=== PATIENT | male | born 1945 | race Two or more races ===

== ENCOUNTER 2016-12-24 12:35 | Inpatient (IN) | payer OTHER, MEDICARE ==
[~2016-12-24] VITALS: Ht 160 cm; Wt 70.5 kg
[2016-12-29] MEDS ORDERED: SODIUM CHLORID 0.9% 500 ML IV PRN (05:45)
[2016-12-29] MEDS ORDERED: LACTATED RINGER'S 1000 ML IV PRN (05:45)
[2016-12-29] MEDS ORDERED: INSULIN HUMAN REGULAR 1,000 UNITS/10 ML VIAL SQ PRN (05:45)
[2016-12-29] MEDS ORDERED: POVIDONE IODINE 7.5% SCRUB 118 ML BOTTLE TOPICAL SCH (05:45)
[2016-12-29] MEDS ORDERED: METOPROLOL TARTRATE 25 MG TAB PO PRN (05:45)
[2016-12-29] MEDS ORDERED: POVIDONE IODINE 5% (ANTISEPSIS KIT) 4 APPLICATIONS EACH NARE PRN (05:45)
[2016-12-29] MEDS ORDERED: CHLORHEXIDINE GLUCONATE 4% SOLN 120 ML BTL TOPICAL SCH (05:45)
[2016-12-29] MEDS ORDERED: ceFAZolin 2 GM PREMIX 50 ML IV SCH (05:45)
[2016-12-29] MEDS ORDERED: VANCOMYCIN 1000 MG/NS 250 ML (for <70 kg) IV SCH ×2 (05:45)
[2016-12-29] MEDS ORDERED: CHLORHEXIDINE GLUCONATE 2 % 1 PACK (2 CLOTHS) TOPICAL PRN (05:45)
[2016-12-29] MEDS ORDERED: LISI10TA PO (05:51)
[2016-12-29] MEDS ORDERED: DILT240C PO (05:51)
[2016-12-29] MEDS ORDERED: OMEP20CA2 PO (05:51)
[2016-12-29] MEDS ORDERED: FENO160T PO (05:51)
[2016-12-29 05:52] VITALS: BP 137/81; PULSE 68; RESP 20; TEMP 97.8; O2SAT 95
[2016-12-29] MEDS ORDERED: DEXAMETHASONE SOD PHOS 20 MG/5 ML VIAL IV SCH (06:00)
[2016-12-29] MEDS ORDERED: GENTAMICIN SULFATE 80 MG/2 ML VIAL ONE ×2 (06:16)
[2016-12-29] MEDS ORDERED: FAMOTIDINE 20 MG/2 ML VIAL ONE (06:35)
[2016-12-29] MEDS ORDERED: MIDAZOLAM HCL 2 MG/2 ML VIAL ONE (06:35)
[2016-12-29] MEDS ORDERED: DEXAMETHASONE SOD PHOS 4 MG/ML VIAL ONE (06:35)
[2016-12-29] MEDS ORDERED: ACETAMINOPHEN 1000 MG/100 ML VIAL IV ONE (06:35)
[2016-12-29] MEDS ORDERED: ONDANSETRON HCL 4 MG/2 ML VIAL IVP PRN (06:45)
[2016-12-29] MEDS ORDERED: diphenhydrAMINE HCL 50 MG/ML VIAL IV PRN (06:45)
[2016-12-29] MEDS ORDERED: ALUMINUM/MAGNESIUM/SIMETH 30 ML CUP PO PRN (06:45)
[2016-12-29] MEDS ORDERED: MORPHINE SULFATE 4 MG/ML INJ IV PUSH PRN (06:45)
[2016-12-29] MEDS ORDERED: NALOXONE HCL 0.4 MG/ML AMP IV PRN (06:45)
[2016-12-29] MEDS ORDERED: BISACODYL 10 MG SUPP RECTAL PRN (06:45)
[2016-12-29] MEDS ORDERED: SODIUM CHLORIDE 0.9% FLUSH 5 ML FLUSH IVF PRN (06:45)
[2016-12-29] MEDS ORDERED: ZOLPIDEM TARTRATE 5 MG TAB PO PRN (06:45)
[2016-12-29] MEDS ORDERED: Post-op Orders (for Pharmacy) MISC XX ONE (06:45)
[2016-12-29] MEDS ORDERED: ACETAMINOPHEN/HYDROcodone 325 MG/10 MG TAB PO PRN (06:45)
[2016-12-29] MEDS ORDERED: HYDR-3288 PO (06:46)
[2016-12-29] MEDS ORDERED: ENOX30P SQ (06:47)
[2016-12-29] MEDS ORDERED: ASPI81CH37 CHEW (06:48)
[2016-12-29] MEDS ORDERED: TRANEXAMIC PERI-ARTICULAR 3,000 MG/NS 100 ML P-ARTICULR SCH ×2 (07:00)
[2016-12-29] MEDS ORDERED: EXPAREL PERI-ARTICULAR INJECTION (TOTAL VOL. 60 ML) P-ARTICULR SCH ×2 (07:00)
[2016-12-29] MEDS ORDERED: TRANEXAMIC ACID IV SCH (07:00)
[2016-12-29] MEDS ORDERED: SODIUM CHLORIDE 0.9% IV SCH (07:00)
[2016-12-29] MEDS: LISINOPRIL 10 MG TAB PO SCH (09:00)
[2016-12-29] MEDS ORDERED: DO NOT ADM ANY ANTICOAGULANT DRUGS PRN (09:00)
[2016-12-29] MEDS ORDERED: NON-FORMULARY DRUG (Lisinopril-Hctz 1 TAB) PO SCH (09:00)
[2016-12-29] MEDS: DILTIAZEM-CD 240 MG CAP ER PO SCH (09:00)
[2016-12-29] MEDS: FENOFIBRATE 145 MG TAB PO SCH (09:00)
[2016-12-29] MEDS: PANTOPRAZOLE SOD 20 MG DELAYED RELEASE TAB PO SCH (09:00)
[2016-12-29] MEDS: HYDROCHLOROTHIAZIDE 25 MG TAB PO SCH (09:00)
[2016-12-29] MEDS: SODIUM CHLORIDE 0.9% FLUSH 5 ML FLUSH IVF SCH ×2 (09:00→21:07)
[2016-12-29] MEDS: SODIUM CHLOR 0.9% 1000 ML INJ 1,000 ML IV SCH ×2 (09:00→17:00)
--- NOTE | 2016-12-29 09:19 | RADRPT ---
EXAM DATE/TIME: 12/29/2016 07:14 [facility] COMPARISON: No previous studies available for comparison. INDICATIONS : Right anterior hip replacement. MEDICAL HISTORY : Hypertension. Gastroesophageal reflux disease. SURGICAL HISTORY : None. ENCOUNTER: Initial ACUITY: 1 day PAIN SCORE: Non-responsive. LOCATION: Right hip. FINDINGS: 2 AP views of the right hip were obtained and demonstrate that the patient is status post right hip a rthroplasty. The femoral and acetabular components are intact and in normal alignment. Overlying surg ical skin maury and mild artifact is present. CONCLUSION: Status post right hip arthroplasty. Wild Lopez MD on December 29, 2016 at 9:16 Board Certified Radiologist. This report was verified electronically.
--- NOTE | 2016-12-29 09:51 | RADRPT ---
EXAM DATE/TIME: 12/29/2016 09:14 [facility] COMPARISON: No previous studies available for comparison. INDICATIONS : Post op right total hip. MEDICAL HISTORY : None. SURGICAL HISTORY : None. ENCOUNTER: Subsequent ACUITY: 1 day PAIN SCORE: Non-responsive. LOCATION: Right hip FINDINGS: Right total hip arthroplasty is noted. The hardware is intact. Alignment is anatomic. The adjacent pe lvis is intact. Contralateral left hip is nonacute. CONCLUSION: Satisfactory appearance post right KARLENE Bipin Krishna MD on December 29, 2016 at 9:49 Board Certified Radiologist. This report was verified electronically.
[2016-12-29 12:00] VITALS: BP 123/73; PULSE 75; RESP 15; TEMP 97.1; O2SAT 95
--- NOTE | 2016-12-29 13:02 | EKG ---
Date Performed: 12/29/2016 Time Performed: 06:19:59 PTAGE: 71 years EKG: Sinus rhythm BORDERLINE LEFT AXIS DEVIATION RIGHT BUNDLE BRANCH BLOCK ABNORMAL ECG NO PREVIOUS TRACING DOCTOR: Faisal Fontenot Interpretating Date/Time 12/29/2016 13:00:54
[2016-12-29] MEDS ORDERED: PROPOFOL 200 MG/20 ML AMP IV ONE (14:56)
[2016-12-29] MEDS ORDERED: PHENYLEPH/NS 1000 MCG/10 ML SYR IV ONE (14:57)
[2016-12-29] MEDS ORDERED: ePHEDrine/NS 25 MG/5 ML SYR IV ONE (14:57)
[2016-12-29] MEDS ORDERED: ONDANSETRON HCL 4 MG/2 ML VIAL IV PUSH ONE (14:58)
[2016-12-29 16:00] VITALS: BP 133/80; PULSE 83; RESP 18; TEMP 96.6; O2SAT 95
--- NOTE | 2016-12-29 16:23 | PD.CONS ---
[facility] Consult Requested By Orthopedist Dr. Bellamy Reason for Consult Assist with Medical Management Primary Care Physician Dania Ford MD Diagnoses: History of Present Illness Pt. is a 71 year old male with PMHX HTN, HLD who came to the hospital for Right Total Hip Arthroplasty. Pt. was seen and examined post op. States he is doing well. Verified his past medical history. States that he has been having problems with his right hip. States pain was worsening prior to surgery and he thought that it might have been related to his multiple right hernia surgeries. Postop he denies pain and discomfort. Denies SOB/ dyspnea. Denies chest pain , palpitations, headaches, dizziness. Denies fevers, chills, n/v/d. Denies hematuria, dysuria. Review of Systems Except as stated in HPI: all other systems reviewed are Neg Past Family Social History Allergies: Coded Allergies: No Known Allergies (Unverified , 12/29/16) Past Medical History HTN HLD GERD Hernia Colon polyps Past Surgical History Cholecystectomy Right hernia repair 2 Left hernia repair Colon resection removal of polyps Colonoscopy Reported Medications Reported Meds & Active Scripts Active Aspirin Low Dose (Aspirin) 81 Mg Chew 81 Mg CHEW BID Lovenox Inj (Enoxaparin Sodium) 30 Mg/0.3 Ml Syr 30 Mg SQ DAILY [place] (Hydrocodone-Acetaminophen) 7.5-325 mg Tab 1-2 Tab PO Q6H PRN Reported Omeprazole 20 Mg Cap 1 Cap PO DAILY Diltiazem HCl ER (Diltiazem HCl Coated Beads) 240 Mg Cap 1 Cap PO DAILY Fenofibrate 160 Mg Tab 160 Mg PO DAILY Lisinopril-Hctz 10-12.5 Mg Tab 1 Tab PO DAILY Active Ordered Medications Current Medications Medications (Trade) Dose Ordered Sig/Deon Route Start Time Stop Time Status Last Admin (Cardizem Cd) 240 mg DAILY PO 12/29/16 09:00 (Tricor) 145 mg DAILY PO 12/29/16 09:00 Pantoprazole Sodium 20 mg 20 mg DAILY PO 12/29/16 09:00 (NS 1000 ml Inj) 1,000 ml @ 100 mls/hr Q10H IV 12/29/16 07:00 12/29/16 09:00 (NS Flush) 2 ml UNSCH PRN IVF 12/29/16 06:45 IV Flush 2 ml 2 ml BID IVF 12/29/16 09:00 (Ancef Inj/NS Inj) 100 ml @ 200 mls/hr Q6H IV 12/29/16 12:00 12/30/16 00:29 12/29/16 11:40 (Lovenox Inj) 30 mg Q24H SQ 12/29/16 21:00 (Morphine Inj) 3 mg Q3H PRN IV PUSH 12/29/16 06:45 ([place] 10-325 Mg) 1 tab Q4H PRN PO 12/29/16 06:45 ([place] 10-325 Mg) 2 tab Q6H PRN PO 12/29/16 06:45 (Theragran M Tab) 1 tab BID PO 12/30/16 21:00 02/28/17 20:59 (Zofran Inj) 4 mg Q6H PRN IVP 12/29/16 06:45 (Colace) 100 mg BID PO 12/30/16 21:00 (Mag-Al Plus Susp Liq) 30 ml Q6H PRN PO 12/29/16 06:45 (Ambien) 5 mg HS PRN PO 12/29/16 06:45 (Dulcolax Supp) 10 mg DAILY PRN RECTAL 12/29/16 06:45 (Narcan Inj) 0.4 mg UNSCH PRN IV 12/29/16 06:45 (Benadryl Inj) 25 mg Q6H PRN IV 12/29/16 06:45 (Prinivil) 10 mg DAILY PO 12/29/16 09:00 (Hydrodiuril) 12.5 mg DAILY PO 12/29/16 09:00 Miscellaneous Information ALL NURSING DEPARTME... UNSCH PRN .XX 12/29/16 09:00 12/30/16 08:59 Family History Denies any family medical history Social History Patient is retired. Lives with . Occasional alcohol use Denies tobacco use Denies illicit drug use Physical Exam Vital Signs Vital Signs Date Time Temp Pulse Resp B/P Pulse Ox O2 Delivery O2 Flow Rate FiO2 12/29/16 12:00 97.1 75 15 123/73 95 12/29/16 11:43 98.1 77 18 120/65 96 Room Air 12/29/16 11:09 77 18 103/57 96 Room Air 12/29/16 10:30 74 16 105/75 94 Room Air 12/29/16 10:15 75 18 132/63 92 Room Air 12/29/16 10:00 71 16 106/62 94 Room Air 12/29/16 09:45 72 16 105/54 94 Room Air 12/29/16 09:30 75 16 109/57 93 Room Air 12/29/16 09:15 76 16 106/65 97 Room Air 12/29/16 09:00 69 15 106/62 100 Simple Mask 6 12/29/16 08:49 97.6 71 15 105/61 98 Simple Mask 6 12/29/16 05:52 97.8 68 20 137/81 95 Physical Exam GENERAL: This is a well-nourished, well-developed patient, in no apparent distress. SKIN: No rashes, ecchymoses or lesions. Cool and dry. HEAD: Atraumatic. Normocephalic. No temporal or scalp tenderness. EYES: Pupils equal round and reactive. No scleral icterus. No injection or drainage. ENT: Nose without bleeding. Throat without erythema. Uvula midline. Airway patent. NECK: Trachea midline. No JVD or lymphadenopathy. Supple, nontender, no meningeal signs. CARDIOVASCULAR: Regular rate and rhythm without murmurs, gallops, or rubs. RESPIRATORY: Clear to auscultation. Breath sounds equal bilaterally. No wheezes , rales, or rhonchi. GASTROINTESTINAL: Abdomen soft, non-tender, nondistended. Bowel sounds hypoactive. Barron draining clear yellow urine MUSCULOSKELETAL: Extremities without clubbing, cyanosis, trace bilateral lower extremity edema. Right hip with dressing packed clean dry and intact. NEUROLOGICAL: Awake and alert. Cranial nerves II through XII intact. Motor and sensory grossly within normal limits. Normal speech. Laboratory Laboratory Tests Test 12/29/16 05:50 Blood Type A POSITIVE Antibody Screen NEGATIVE Blood Bank Comment Imaging Last Impressions Hip and Pelvis X-Ray 12/29/16 0000 Signed Impressions: Service Date/Time: Thursday, December 29, 2016 09:14 - CONCLUSION: Satisfactory appearance post right KARLENE Bipin Krishna MD Hip X-Ray 12/29/16 0000 Signed Impressions: Service Date/Time: Thursday, December 29, 2016 07:14 - CONCLUSION: Status post right hip arthroplasty. Wild Lopez MD Assessment and Plan Problem List: (1) HLD (hyperlipidemia) ICD Code: E78.5 Status: Chronic (2) HTN (hypertension) ICD Code: I10 Status: Chronic (3) Status post total hip replacement, right ICD Code: Z96.641 Status: Acute Assessment and Plan Pt. is a 71 year old male with PMHX HTN, HLD who came to the hospital for Right Total Hip Arthroplasty 12/29/[address] Bellamy. Consulted for medical management. Status post right total hip arthroplasty - Pain medication as ordered - PT/OT by primary team HTN - Continue home medication lisinopril 10 mg/hydrochlorothiazide 12.5 mg daily , diltiazem 240 mg daily - Monitor BP trend. - As per patient, he only uses note by is M to 40 mg at night when his blood pressure is above 140 as told by his PCP. Trend BP and heart rate overnight May DC diltiazem if not needed. We'll place hold parameters. Constipation - Colace twice a day - When necessary MO M - Discussed with patient and family need for bowel regimens as narcotics may slow GI motility DVT prop Lovenox 30 mg daily Thank you for this consultation. We will follow patient with you. Written by Maribell Suarez, acting as scribe for Dr. Bartlett on 12/29/16 at 16:22. This note was transcribed by mikel ARRIETA. I, Dr. Hillary Bartlett personally performed the history, physical exam, and medical decision making; and confirmed the accuracy of the information in the transcribed note. Authenticated by Dr. Hillary Bartlett on 12/29/16 at 16:22. Code Status Full Code Discussed Condition With Patient, nursing Maribell Abad December 29, 2016 16:23 Hillary Bartlett MD December 29, 2016 18:13
[2016-12-29] MEDS: ACETAMINOPHEN/HYDROcodone 325 MG/10 MG TAB PO PRN ×2 (17:23→21:53)
[2016-12-29 19:34] VITALS: O2SAT 95
[2016-12-29 20:35] VITALS: BP 120/79; PULSE 89; RESP 17; TEMP 98.7; O2SAT 96
[2016-12-29] MEDS: ENOXAPARIN SODIUM 30 MG/0.3 ML SYRINGE SQ SCH (21:07)
[2016-12-30] VITALS (9 sets, daily range): BP systolic 121–151; BP diastolic 59–84; PULSE 72–89; RESP 16–18; TEMP 97.4–100.1; O2SAT 93–98
[2016-12-30] MEDS: SODIUM CHLOR 0.9% 1000 ML INJ 1,000 ML IV SCH ×3 (03:00→23:00)
[2016-12-30 07:49] LABS: HEMATOCRIT 33.7 % (39.0-51.0); MEAN CELL VOLUME 85.9 FL (80.0-100.0); MEAN CORPUSCULAR HGB CONC 34.9 % (32.0-36.0); PLATELET COUNT 184 TH/MM3 (150-450); RED BLOOD COUNT 3.92 MIL/MM3 (4.50-5.90); RED CELL DISTRIBUTION WIDTH 13.1 % (11.6-17.2); REVIEW FLAG FINAL; WHITE BLOOD COUNT 9.7 TH/MM3 (4.0-11.0)
[2016-12-30 08:18] LABS: BICARBONATE 27.4 MEQ/L (21.0-32.0); POTASSIUM 3.6 MEQ/L (3.5-5.1)
--- NOTE | 2016-12-30 08:39 | MP ---
cc: ARMOND STUART M.D. DATE OF SURGERY 12/29/2016 PREOPERATIVE DIAGNOSIS Right hip osteoarthritis POSTOPERATIVE DIAGNOSES Right hip osteoarthritis PROCEDURE Right total hip arthroplasty SURGEON Dr. Armond Stuart [employer] [place] ANESTHESIA General ESTIMATED BLOOD LOSS 100 cc COMPLICATIONS None IMPLANTS USED DePuy Corail size 8 Press-Fit standard offset femoral stem, size 52 solid pinnacle Gription cup, size 36 mm ceramic head, +1.5 neck, 32 mm highly cross-linked neutral polyethylene liner. JUSTIFICATION This patient is a 71-year-old male with a history of severe end-stage osteoarthritis involving the right hip. He has severe disabling pain with standing, walking, ambulation and weight-bearing activities and has pain at rest. He has failed greater than three months of nonoperative conservative to include medication therapy, injections, ambulatory assisted aids, home exercise program, activity modification. The patient is not overweight. X-ray of the right hip reveals severe end-stage osteoarthritis with [id number] joint space narrowing, subchondral sclerosis, subchondral cyst osteophyte formation with subluxation. The patient counseled as to the risks, benefits and alternative to a total hip arthroplasty. The risks were discussed which include, but are not limited to infection, bleeding, damage to nerves or blood vessels, pain, stiffness, fracture-dislocation, leg length descrepancy, blood clots, pulmonary embolism and even . The patient's pain is severe and he favored the benefits over the risks and did wish to proceed with surgery. PROCEDURE IN DETAIL A written consent was obtained. The patient identified, taken to the operating room, placed supine on the operating room table. General anesthesia was administered as well as 2 grams of IV Ancef and 1 gram of IV vancomycin. The right and left feet were placed in padded traction boots. The right lower extremity prepped and draped using isopropyl alcohol, Hibiclens solution and Chloraprep solution. After a time-out was performed, a longitudinal incision made over the anterolateral aspect of the right hip. The fascial layer was incised. Dissection carried over the tensor fascia obey, beneath the rectus femoris to allow exposure of the anterior hip capsule. Capsulotomy incision was then performed. An oscillating saw was used to perform a femoral neck cut. The femoral head neck component was removed. A 10 blade scalpel was used to excise the labrum. Sequential reaming began at size 45 and was carried through to a size 52. A solid pinnacle Gription size 52 cup was implanted in approximately 45 degrees of abduction and 10 degrees of anteversion. There was good purchase and fixation. A screw hole eliminator was placed followed by the neutral liner. The liner was impacted into place and tested for stability. Attention was then turned to the femur where the leg was externally rotated, extended and adducted. A box cutting osteotome was used to gain entrance into the intramedullary canal of the femur. This was followed by canal finder, sequential broaching up to a size 8. A calcar planer was used to plane the calvar. The trial head neck combinations were evaluated and final components implanted with the current implants. The leg could achieve external rotation to 70 degrees and extension all the way down to the ground without evidence of anterior instability. Soft tissue tension felt appropriate and fluoroscopic imaging showed appropriate implantation of the components. The surgical wound was thoroughly irrigated with sterile saline and pulse lavage antibiotic impregnated solution. The fascial layer was closed with #1 Vicryl suture. The subcutaneous layer closed with 2-0 Vicryl suture. Skin was closed with Dermabond. Sterile dressing applied. The patient tolerated the procedure well. No intraoperative complications noted. Baudilio Zuniga, Physician Park Recreation Manager Certified was present during the entire procedure to include patient positioning and the procedure itself. The medical necessity of a physician medical assistant secretary was indicated in this case due to the complexity of the procedure. He assisted with appropriate manipulation of the leg and also retraction of the muscle, tendon, bone and neurovascular structures. He assisted with preparation of the bone and also implantation of prosthetic replacement. MD ARNOLDO Flood/ELIESER /8:37 AM /8:29 AM
[2016-12-30] MEDS: PANTOPRAZOLE SOD 20 MG DELAYED RELEASE TAB PO SCH (09:00)
[2016-12-30] MEDS: SODIUM CHLORIDE 0.9% FLUSH 5 ML FLUSH IVF SCH ×2 (09:00→21:42)
[2016-12-30] MEDS: FENOFIBRATE 145 MG TAB PO SCH (09:00)
--- NOTE | 2016-12-30 09:04 | PD.ORT.PN ---
Subjective Post Op Day #: 1 Subjective Remarks pain under control. did not walk much in PT yesterday. Objective Vitals Vital Signs Date Time Temp Pulse Resp B/P Pulse Ox O2 Delivery O2 Flow Rate FiO2 12/30/16 04:35 98.6 86 17 128/76 95 12/30/16 00:35 98.8 89 17 140/77 95 12/29/16 20:35 98.7 89 17 120/79 96 12/29/16 19:34 95 21 12/29/16 16:00 96.6 83 18 133/80 95 12/29/16 12:00 97.1 75 15 123/73 95 12/29/16 11:43 98.1 77 18 120/65 96 Room Air 12/29/16 11:09 77 18 103/57 96 Room Air 12/29/16 10:30 74 16 105/75 94 Room Air 12/29/16 10:15 75 18 132/63 92 Room Air 12/29/16 10:00 71 16 106/62 94 Room Air 12/29/16 09:45 72 16 105/54 94 Room Air 12/29/16 09:30 75 16 109/57 93 Room Air 12/29/16 09:15 76 16 106/65 97 Room Air I/O 12/29/16 12/29/16 12/29/16 12/30/16 12/30/16 12/30/16 07:00 15:00 23:00 07:00 15:00 23:00 Intake Total 1340 ml 240 ml 240 ml Output Total 1650 ml 750 ml Balance -310 ml -510 ml 240 ml Intake Oral 240 ml 240 ml 240 ml IV Total 300 ml Other 800 ml Output Urine Total 1250 ml 750 ml Estimated Blood Loss 400 ml # Bowel Movements 0 Result Diagram: 12/30/16 0644 12/30/16 0644 Objective Remarks in bed, nad incision no erythema, no drainage thigh soft neg homans nvi Assessment & Plan Ortho Post Op Day #: 1 Problem List: Assessment and Plan s/p R KARLENE anterior approach wbat daily dressing changes lovenox d/c planning home with [facility] and pt rx in chart f/up dr. jones 2 weeks Teja Zuniga December 30, 2016 09:04
--- NOTE | 2016-12-30 09:05 | HHI.DCPOC ---
Discharge Care Plan Diagnosis: (1) Primary localized osteoarthrosis, pelvic region and thigh Your Health Problems Are: Difficulty with ADL Goals to Promote Your Health * To prevent worsening of your condition and complications * To maintain your health at the optimal level Directions to Meet Your Goals Take your medications as prescribed Follow your dietary instruction Follow activity as directed Keep your appointments as scheduled Take your immunizations and boosters as scheduled If your symptoms worsen call your PCP, if no PCP go to Urgent Care Center or Emergency Room Smoking is Dangerous to Your Health. Avoid second hand smoke Call the 24-hour hour crisis hotline for domestic abuse at Teja Zuniga December 30, 2016 09:05
--- NOTE | 2016-12-30 09:06 | HHI.FF ---
Face to Face Verification Diagnosis: (1) Primary localized osteoarthrosis, pelvic region and thigh Physical Therapy Gait training, Safety evaluation, Transfer training, bed to chair Hip: Total hip, Protocol: Right Right LE Weight Bearing: WB as tolerated Nursing RN: 3 days/week x 2 weeks Nursing: Jason teaching, Dressing changes Dressing Changes: Daily dressing change I have seen patient Ketan Albarran on 12/30/16. My clinical findings support the need for the requested home health care services because: Limited ability to care for self High risk of falls I certify that my clinical findings support that this patient is homebound because: Post-op weakness Unsteady gait/balance Teja Zuniga December 30, 2016 09:06
[2016-12-30] MEDS ORDERED: MISC-163 (09:07)
--- NOTE | 2016-12-30 09:25 | HHI.PR ---
Subjective Remarks Patient is in the chair, family at bedside. Patient said he was able to ambulate today, and he has no pain. No nausea or vomiting, and a bowel movement yesterday. Denies chest pain or shortness of breath. No palpitations. Objective Vitals Vital Signs Date Time Temp Pulse Resp B/P Pulse Ox O2 Delivery O2 Flow Rate FiO2 12/30/16 08:10 98.3 78 18 151/84 97 12/30/16 04:35 98.6 86 17 128/76 95 12/30/16 00:35 98.8 89 17 140/77 95 12/29/16 20:35 98.7 89 17 120/79 96 12/29/16 19:34 95 21 12/29/16 16:00 96.6 83 18 133/80 95 12/29/16 12:00 97.1 75 15 123/73 95 12/29/16 11:43 98.1 77 18 120/65 96 Room Air 12/29/16 11:09 77 18 103/57 96 Room Air 12/29/16 10:30 74 16 105/75 94 Room Air 12/29/16 10:15 75 18 132/63 92 Room Air 12/29/16 10:00 71 16 106/62 94 Room Air 12/29/16 09:45 72 16 105/54 94 Room Air 12/29/16 09:30 75 16 109/57 93 Room Air I/O 12/29/16 12/29/16 12/29/16 12/30/16 12/30/16 12/30/16 06:59 14:59 22:59 06:59 14:59 22:59 Intake Total 1100 ml 480 ml 240 ml Output Total 1300 ml 1100 ml Balance -200 ml -620 ml 240 ml Intake Oral 480 ml 240 ml IV Total 300 ml Other 800 ml Output Urine Total 900 ml 1100 ml Estimated Blood Loss 400 ml # Bowel Movements 0 Result Diagram: 12/30/16 0644 12/30/1644 Imaging Last Impressions Hip and Pelvis X-Ray 12/29/16 0000 Signed Impressions: Service Date/Time: Thursday, December 29, 2016 09:14 - CONCLUSION: Satisfactory appearance post right KARLENE Bipin Krishna MD Hip X-Ray 12/29/16 0000 Signed Impressions: Service Date/Time: [place], December 29, 2016 07:14 - CONCLUSION: Status post right hip arthroplasty. Wild Lopez MD Objective Remarks GENERAL: This is a well-nourished, well-developed patient, in no apparent distress. SKIN: No rashes, ecchymoses or lesions. Cool and dry. HEAD: Atraumatic. Normocephalic. No temporal or scalp tenderness. EYES: Pupils equal round and reactive. No scleral icterus. No injection or drainage. ENT: Nose without bleeding. Throat without erythema. Uvula midline. Airway patent. NECK: Trachea midline. No JVD or lymphadenopathy. Supple, nontender, no meningeal signs. CARDIOVASCULAR: Regular rate and rhythm without murmurs, gallops, or rubs. RESPIRATORY: Clear to auscultation. Breath sounds equal bilaterally. No wheezes , rales, or rhonchi. GASTROINTESTINAL: Abdomen soft, non-tender, nondistended. Bowel sounds hypoactive. Barron draining clear yellow urine MUSCULOSKELETAL: Extremities without clubbing, cyanosis, trace bilateral lower extremity edema. Right hip with dressing packed clean dry and intact. NEUROLOGICAL: Awake and alert. Cranial nerves II through XII intact. Motor and sensory grossly within normal limits. Normal speech. A/P Problem List: (1) HLD (hyperlipidemia) ICD Code: E78.5 Status: Chronic (2) HTN (hypertension) ICD Code: I10 Status: Chronic (3) Status post total hip replacement, right ICD Code: Z96.641 Status: Acute Assessment and Plan Pt. is a 71 year old male with PMHX HTN, HLD who came to the hospital for Right Total Hip Arthroplasty 12/29/[address] Bellamy. Consulted for medical management. Status post right total hip arthroplasty - Pain medication as ordered - PT/OT by primary team HTN - Continue home medication lisinopril 10 mg/hydrochlorothiazide 12.5 mg daily , diltiazem 240 mg daily. - Monitor BP trend. - As per patient, he only uses note by is M to 40 mg at night when his blood pressure is above 140 as told by his PCP. Trend BP and heart rate overnight May DC diltiazem if not needed. We'll place hold parameters. Constipation - Colace twice a day - When necessary MO M - Discussed with patient and family need for bowel regimens as narcotics may slow GI motility DVT prop Lovenox 30 mg daily Thank you for this consultation. We will follow patient with you. Code Status Full Code Discussed Condition With Patient, nurse Hillary Bartlett MD December 30, 2016 09:25
[2016-12-30] MEDS: DILTIAZEM-CD 240 MG CAP ER PO SCH (09:48)
[2016-12-30] MEDS: ACETAMINOPHEN/HYDROcodone 325 MG/10 MG TAB PO PRN ×2 (09:50→13:17)
[2016-12-30] MEDS: HYDROCHLOROTHIAZIDE 25 MG TAB PO SCH (09:51)
[2016-12-30] MEDS: LISINOPRIL 10 MG TAB PO SCH (09:51)
[2016-12-30] MEDS: MULTIVITAMINS/MINERALS THERAPEUTIC TAB PO SCH (21:42)
[2016-12-30] MEDS: ENOXAPARIN SODIUM 30 MG/0.3 ML SYRINGE SQ SCH (21:42)
[2016-12-30] MEDS: DOCUSATE SODIUM 100 MG CAP PO SCH (21:42)
[2016-12-31 06:48] LABS: HEMATOCRIT 35.9 % (39.0-51.0); MEAN CELL VOLUME 85.3 FL (80.0-100.0); MEAN CORPUSCULAR HEMOGLOBIN 29.6 PG (27.0-34.0); MEAN CORPUSCULAR HGB CONC 34.7 % (32.0-36.0); PLATELET COUNT 199 TH/MM3 (150-450); RED BLOOD COUNT 4.21 MIL/MM3 (4.50-5.90); RED CELL DISTRIBUTION WIDTH 13.6 % (11.6-17.2); REVIEW FLAG FINAL; WHITE BLOOD COUNT 9.4 TH/MM3 (4.0-11.0)
[2016-12-31 07:06] VITALS: BP 127/71; PULSE 68; RESP 18; TEMP 98.9; O2SAT 96
[2016-12-31 07:29] LABS: BICARBONATE 30.8 MEQ/L (21.0-32.0); POTASSIUM 3.8 MEQ/L (3.5-5.1)
--- NOTE | 2016-12-31 08:36 | PD.ORT.PN ---
Subjective Post Op Day #: 2 Subjective Remarks pain under control. did well with PT yesterday. Objective Vitals Vital Signs Date Time Temp Pulse Resp B/P Pulse Ox O2 Delivery O2 Flow Rate FiO2 12/31/16 07:06 98.9 68 18 127/71 96 12/30/16 23:35 100.1 81 17 136/70 95 12/30/16 21:06 95 21 12/30/16 20:50 99.9 81 17 121/59 93 12/30/16 16:50 97.4 86 16 132/66 95 12/30/16 12:20 98.4 72 16 139/79 98 12/30/16 09:12 96 21 I/O 12/30/16 12/30/16 12/30/16 12/31/16 12/31/16 12/31/16 07:00 15:00 23:00 07:00 15:00 23:00 Intake Total 240 ml 2241 ml 480 ml 720 ml Output Total 900 ml 400 ml 1050 ml Balance 240 ml 1341 ml 80 ml -330 ml Intake Oral 240 ml 1280 ml 480 ml 720 ml IV Total 961 ml Output Urine Total 900 ml 400 ml 1050 ml # Bowel Movements 0 0 Result Diagram: 12/31/1613 12/31/16612 Objective Remarks in bed, nad incision no erythema, no drainage thigh soft neg homans nvi Assessment & Plan Ortho Post Op Day #: 2 Problem List: Assessment and Plan s/p R KARLENE anterior approach wbat daily dressing changes lovenox IS d/c planning home with [facility] and pt - cleared for d/c rx in chart f/up dr. jones 2 weeks Teja Zuniga December 31, 2016 08:36
[2016-12-31] MEDS: SODIUM CHLOR 0.9% 1000 ML INJ 1,000 ML IV SCH ×2 (09:00→09:49)
[2016-12-31] MEDS: PANTOPRAZOLE SOD 20 MG DELAYED RELEASE TAB PO SCH (09:00)
[2016-12-31] MEDS: FENOFIBRATE 145 MG TAB PO SCH (09:00)
[2016-12-31] MEDS: SODIUM CHLORIDE 0.9% FLUSH 5 ML FLUSH IVF SCH (09:00)
--- NOTE | 2016-12-31 09:02 | HHI.PR ---
Subjective Remarks Since he has some pain after he ambulated with PT. He is not taking much of the pain medications. Otherwise no complaints. Denies any chest pain, shortness of breath, nausea, vomiting or diarrhea. He has constipation. Objective Vitals Vital Signs Date Time Temp Pulse Resp B/P Pulse Ox O2 Delivery O2 Flow Rate FiO2 12/31/16 07:06 98.9 68 18 127/71 96 12/30/16 23:35 100.1 81 17 136/70 95 12/30/16 21:06 95 21 12/30/16 20:50 99.9 81 17 121/59 93 12/30/16 16:50 97.4 86 16 132/66 95 12/30/16 12:20 98.4 72 16 139/79 98 12/30/16 09:12 96 21 I/O 12/30/16 12/30/16 12/30/16 12/31/16 12/31/16 12/31/16 07:00 15:00 23:00 07:00 15:00 23:00 Intake Total 240 ml 2241 ml 480 ml 720 ml Output Total 900 ml 400 ml 1050 ml Balance 240 ml 1341 ml 80 ml -330 ml Intake Oral 240 ml 1280 ml 480 ml 720 ml IV Total 961 ml Output Urine Total 900 ml 400 ml 1050 ml # Bowel Movements 0 0 Result Diagram: 12/31/16 0613 12/31/16 0613 Imaging Last Impressions Hip and Pelvis X-Ray 12/29/16 0000 Signed Impressions: Service Date/Time: Thursday, December 29, 2016 09:14 - CONCLUSION: Satisfactory appearance post right KARLENE Bipin Krishna MD Hip X-Ray 12/29/16 0000 Signed Impressions: Service Date/Time: Thursday, December 29, 2016 07:14 - CONCLUSION: Status post right hip arthroplasty. Wild Lopez MD Objective Remarks GENERAL: This is a well-nourished, well-developed patient, in no apparent distress. SKIN: No rashes, ecchymoses or lesions. Cool and dry. HEAD: Atraumatic. Normocephalic. No temporal or scalp tenderness. EYES: Pupils equal round and reactive. No scleral icterus. No injection or drainage. ENT: Nose without bleeding. Throat without erythema. Uvula midline. Airway patent. NECK: Trachea midline. No JVD or lymphadenopathy. Supple, nontender, no meningeal signs. CARDIOVASCULAR: Regular rate and rhythm without murmurs, gallops, or rubs. RESPIRATORY: Clear to auscultation. Breath sounds equal bilaterally. No wheezes , rales, or rhonchi. GASTROINTESTINAL: Abdomen soft, non-tender, nondistended. Bowel sounds hypoactive. Barron draining clear yellow urine MUSCULOSKELETAL: Extremities without clubbing, cyanosis, trace bilateral lower extremity edema. Right hip with dressing packed clean dry and intact. NEUROLOGICAL: Awake and alert. Cranial nerves II through XII intact. Motor and sensory grossly within normal limits. Normal speech. A/P Problem List: (1) HLD (hyperlipidemia) ICD Code: E78.5 Status: Chronic (2) HTN (hypertension) ICD Code: I10 Status: Chronic (3) Status post total hip replacement, right ICD Code: Z96.641 Status: Acute Assessment and Plan Pt. is a 71 year old male with PMHX HTN, HLD who came to the hospital for Right Total Hip Arthroplasty 12/29/[address] Bellamy. Consulted for medical management. Status post right total hip arthroplasty - Pain medication as ordered - PT/OT by primary team HTN - Continue home medication lisinopril 10 mg/hydrochlorothiazide 12.5 mg daily , diltiazem 240 mg daily. - Monitor BP trend. - As per patient, he only uses note by is M to 40 mg at night when his blood pressure is above 140 as told by his PCP. Trend BP and heart rate overnight May DC diltiazem if not needed. We'll place hold parameters. Constipation - Colace twice a day - When necessary MO M - Discussed with patient and family need for bowel regimens as narcotics may slow GI motility DVT prop Lovenox 30 mg daily Thank you for this consultation. We will follow patient with you. Code Status Full Code Discussed Condition With Patient, nurse Hillary Bartlett MD December 31, 2016 09:02
[2016-12-31] MEDS: LISINOPRIL 10 MG TAB PO SCH (09:47)
[2016-12-31] MEDS: HYDROCHLOROTHIAZIDE 25 MG TAB PO SCH (09:47)
[2016-12-31] MEDS: DILTIAZEM-CD 240 MG CAP ER PO SCH (09:47)
[2016-12-31] MEDS: MULTIVITAMINS/MINERALS THERAPEUTIC TAB PO SCH (09:47)
[2016-12-31] MEDS: DOCUSATE SODIUM 100 MG CAP PO SCH (09:47)
[2016-12-31] MEDS: ACETAMINOPHEN/HYDROcodone 325 MG/10 MG TAB PO PRN (09:48)
[2016-12-31 11:02] VITALS: BP 131/72; PULSE 72; RESP 18; TEMP 97.1; O2SAT 97
--- NOTE | 2016-12-31 12:49 | MD ---
cc: ARMOND BELLAMY M.D. ADMISSION DATE: 12/29/2016 DISCHARGE DATE: 12/31/2016 ADMISSION DIAGNOSIS Severe degenerative osteoarthritis, right hip. DISCHARGE DIAGNOSIS Severe degenerative osteoarthritis, right hip. HISTORY OF PRESENT ILLNESS Mr. Albarran is a 71-year-old male who presented to the [facility] for evaluation by Dr. Armond Bellamy regarding his severe and progressive right hip pain. The patient states the pain has been bothering him for greater than 1 year duration, for which he has received treatment for this ailment. He states the pain is a constant severe aching sensation which is aggravated by weightbearing activities. He states at this point in time he has no alleviating factors, although in the past he has tried medications, assistive devices, physical therapy, home exercise program. The patient is not overweight and even corticosteroid injection without relief of symptoms. He does have x-ray evidence of severe degenerative osteoarthritis of the right hip. While in the office the patient was counseled on his diagnosis and treatment options, risks, benefits, indications were all discussed in great detail. The patient did elect to proceed with surgical intervention to include a right total hip arthroplasty. DATE OF SURGERY: 12/29/2016, right total hip arthroplasty anterior approach. POSTOP AFTER SURGERY The patient admitted to [facility] where he received appropriate medical management, pain control, DVT prophylaxis as well as physical therapy and discharged. Once being discharged from the hospital the patient is cleared to go home where he will receive home health care and home physical therapy. He is in stable condition. He may weight-bear as tolerated. The patient is to receive daily dressing changes and has been instructed on appropriate wound care management. Patient has been provided prescriptions for pain control as well as DVT prophylaxis medication. He has also been provided a follow-up appointment at the [facility] in approximately 2 weeks from date of surgery. The patient asked appropriate questions which have been answered. The patient is cleared for discharge. Dictated by: MEENAKSHI Gracia MD ARNOLDO Flood/CHRISSIE /8:40 AM /12:47 PM
== END 2016-12-31 12:15 | disposition home health service (06) | DRG 470 ==
LOC: HSDI 12-29 05:09 → N06A 12-29 11:52
PROVIDERS: ADMIT Orthopaedic Surgery Sports Medicine; ATTEND Orthopaedic Surgery Sports Medicine
PROC: 0SR902A Replacement of Right Hip Joint with Metal on Polyethylene Synthetic Substitute, Uncemented, Open Approach (ICD-10-PCS; principal; 2016-12-29 06:42)
DX: M16.11 Unilateral primary osteoarthritis, right hip (principal); I10 Essential (primary) hypertension; E78.5 Hyperlipidemia, unspecified; K21.9 Gastro-esophageal reflux disease without esophagitis; K59.00 Constipation, unspecified
CPT/HCPCS: 73502; 76000; 80048; 85027; 86850; 86900; 86901; 93005; 94150; C1776; C9290; J0131; J0690; J1100; J1580; J1650; J2250; J2370; J2405; J3370; J7030; J7050; J7120